=== PATIENT | female | born 2000 | race Caucasian/White ===

== ENCOUNTER 2019-12-03 08:26 | Emergency (ER) | payer MEDICAID ==
[~2019-12-03] VITALS: Ht 154.9 cm; Wt 59.0 kg
[2019-12-03 10:04] VITALS: BP 105/62
== END 2019-12-03 10:05 | disposition home or self-care (01) ==
LOC: EDBD 08:57 → ER 08:57
DX: R21 Rash and other nonspecific skin eruption (principal)
CPT/HCPCS: 99282; 99283